=== PATIENT | female | born 1970 | race African-American/Black ===

== ENCOUNTER → 2016-10-11 | Outpatient (CLI) | payer OTHER ==
[~2016-10-11] MED LIST: BIOTIN2500 MCG; HYDROCHLOROTHIA25 MG PO; IRON45 MG; LIPITOR20 MG PO; PRINIVIL40 MG PO; VERAPAMIL ER180 MG PO; VITAMIN B122500 MCG; ZYRTEC10 M1 PO
[2016-10-11 10:51] LABS: HEMATOCRIT 38.2 % (35.0-45.0); HEMOGLOBIN 12.4 gm/dL (12.0-16.0); MEAN CELL VOLUME 89.5 FL (83-96); MEAN CORPUSCULAR HEMOGLOBIN 29.2 PG (28-34); MEAN CORPUSCULAR HGB CONC 32.6 g/dL (30-36); MEAN PLATELET VOLUME 9.4 FL (6.5-11.5); RED BLOOD COUNT 4.27 X10e (3.90-5.30); RED CELL DISTRIBUTION WIDTH 13.7 % (11.0-15.5); WHITE BLOOD COUNT 7.1 X10e3 (4.0-10.5)
[2016-10-11 11:21] LABS: BLOOD UREA NITROGEN 15 mg/dL (9-23); BUN/CREATININE RATIO 18.75; CALCIUM SERUM 10.7 mg/dL (8.4-10.2); CARBON DIOXIDE 26 mmol/L (22-31); CHLORIDE 103 mmol/L (100-111); CREATININE SERUM 0.8 mg/dL (0.6-1.4); GLOM FILT RATE Estimated ABOVE60 mL/min (>60); GLUCOSE FASTING 107 mg/dL (70-110); POTASSIUM 3.7 mmol/L (3.5-5.1); SODIUM 139 mmol/L (135-145)
== END | disposition home or self-care (01) ==
LOC: CAMB 09:44
PROVIDERS: Specialist
DX: E04.1 Nontoxic single thyroid nodule (principal)
CPT/HCPCS: 36415; 80048; 85027

== ENCOUNTER → 2016-10-18 | Day surgery (SDC) | payer OTHER ==
--- NOTE | ~2016-10-18 | OR ---
Unit #: [id number] #: [id number] Patient: SHAHRZAD BLOOM [id number] [address] [place], [place] [address] [id number] O MR#: [id number] NAME: SHAHRZAD BLOOM ROOM: Date of Procedure: 10/18/2016 Admission Date: 10/18/2016 Surgeon: Bruno Garcia M.D. : 1970 Attending Physician: Bruno Garcia M.D. Primary Care Physician: Jennifer [facility] OPERATIVE REPORT PREOPERATIVE DIAGNOSES Left thyroid nodule and hypercalcemia. POSTOPERATIVE DIAGNOSES Left thyroid nodule and left superior parathyroid adenoma. PROCEDURE PERFORMED Left thyroid lobectomy as well as an excision of a left superior parathyroid adenoma. ANESTHESIA General endotracheal anesthesia with Nims monitoring tube. FLUIDS Per anesthesia record. FINDINGS Included a large left-sided thyroid nodule. HISTORY This is a 45-year-old female, who has had a history of enlarging thyroid gland on the left. She was noted to have several nodules. These were benign on FNA. Due to her history of progressive symptoms related to his, decision was made to go ahead with left-sided thyroid lobectomy. DESCRIPTION OF PROCEDURE The patient was placed supine on the operating table. Anesthesia was achieved by general endotracheal anesthesia. Of note, NIMs nerve monitoring was performed throughout the procedure. Lidocaine 1% with epinephrine was injected into an incision site, which was a low midline neck crease two fingerbreadths above the sternal notch. Incision was made with a 15 blade and dissection carried down through subcutaneous tissue and through the platysma laterally. The sternocleidomastoid muscles were identified laterally and the strap muscles in the midline were identified. Extra muscular flaps were then elevated superiorly and inferiorly and then the wound was then retracted with an Aureliano retractor. The strap muscles were divided at the midline and the left thyroid lobe was carefully dissected free from the overlying strap muscles. The superior pole was approached first and dissected, isolating its vasculature and the vasculature was divided and ligated with focus Harmonic Scalpel. In this area of the superior pole, there was noted to be a significantly enlarged parathyroid gland just lateral to the superior pole of the thyroid. This Unit #: [id number] #: [id number] Patient: BLOOM,LASHONA was removed and sent for specimen. Inferiorly, all lateral fascial tissue and parathyroid tissue was freed from the inferior portion of the gland. There were no other large parathyroid glands noted. The recurrent laryngeal nerve was then carefully identified and followed to its entrance into the larynx and all overlying vascular tissue was then resected and divided and ligated with focus Harmonic Scalpel and then the thyroid lobe was then elevated from off the isthmus and then divided at the isthmus with focus harmonic Scalpel. Thyroid lobe was sent for specimen as well, so ended up being two specimens, the left thyroid lobe as well as the left superior enlarged parathyroid gland. The wound was then irrigated. Nerve stimulated fine after the dissection. A 10-Chinese AMOL drain was placed. The strap muscles were approximated at the midline with 4-0 Vicryl running stitch and a 4-0 Vicryl interrupted stitch was used to close the subcutaneous tissue. A 5-0 Prolene subcuticular was used to close the skin. Dressing was placed. The patient was awakened and transferred to Recovery in stable condition. Dictated by... Monica Haynes/rodríguez TD: 10/19/2016 09:45 JOB #: [id number] OPERATIVE REPORT Page 1 of 1 X Bruno Garcia MD PROCEDURE OPERATIVE NOTE
== END | disposition home or self-care (01) ==
LOC: CSUR 10:45
DX: D35.1 Benign neoplasm of parathyroid gland (principal); E04.2 Nontoxic multinodular goiter; E83.52 Hypercalcemia; E05.90 Thyrotoxicosis, unspecified without thyrotoxic crisis or storm; K21.9 Gastro-esophageal reflux disease without esophagitis; R13.14 Dysphagia, pharyngoesophageal phase; I10 Essential (primary) hypertension; E78.5 Hyperlipidemia, unspecified; Z90.711 Acquired absence of uterus with remaining cervical stump; Z90.49 Acquired absence of other specified parts of digestive tract; Z87.440 Personal history of urinary (tract) infections; Z98.51 Tubal ligation status; Z88.0 Allergy status to penicillin; Z79.899 Other long term (current) drug therapy
CPT/HCPCS: 88305; 88307; J0131; J0330; J0690; J1100; J1170; J2250; J2405; J2550; J3010

== ENCOUNTER → 2016-11-18 | Outpatient (CLI) | payer OTHER ==
[2016-11-18 12:22] LABS: THYROID STIMULATING HORMONE 1.66 uIU/ml (0.34-5.60)
[2016-11-18 12:29] LABS: FREE THYROXIN (T4) 0.75 ng/dL (0.58-1.64)
== END | disposition home or self-care (01) ==
LOC: CLAB 10:40
PROVIDERS: Specialist
DX: D35.1 Benign neoplasm of parathyroid gland (principal)
CPT/HCPCS: 36415; 82310; 84439; 84443